=== PATIENT | female | born 1970 | race Hispanic/Latino ===

== ENCOUNTER 2017-11-11 06:49 | Day surgery (SDC) | payer OTHER ==
[2017-11-10 13:28] VITALS: BMI 27.4
--- NOTE | 2017-11-11 07:53 | HP ---
DATE OF ADMISSION: 11/11/2017 SHORT-STAY HISTORY AND PHYSICAL HISTORY OF PRESENT ILLNESS: This is a 47-year-old [place] female referred to me for evaluatio n of chronic acid reflux. The patient has had reflux for several years. Recently, her symptoms wors ened. She complains of persistent heartburn and also regurgitation of certain foods. She also compl ains of burning in the throat area. The patient has really no risk factor except for obesity. The p atient is undergoing EGD, because of the worsening acid reflux. ALLERGIES: None. SOCIAL HISTORY: Patient does not smoke or drink alcohol. MEDICAL ILLNESSES: 1. Obesity. 2. Chronic acid reflux. 3. Rheumatoid arthritis. 4. Hemorrhoids. 5. Cholecystectomy. 6. Ovarian cyst removal. PHYSICAL EXAMINATION: VITAL SIGNS: Her weight is 246 pounds. Pulse is 72, blood pressure 120/78. HEENT: Conjunctivae clear. NECK: Supple. CARDIOVASCULAR SYSTEM: First and second heart sounds normal. LUNGS: Clear to auscultation. ABDOMEN: Soft to palpate. Abdomen is nontender. There is no organomegaly or masses. Bowel sounds normal. ADMITTING DIAGNOSES: Chronic acid reflux, worsening recently. The patient undergoing EGD.
[2017-11-11 08:59] LABS: BHCG - Serum Negative (NEGATIVE); Pregs Control Background? CLEAR/WHITE (CLR/WHITE); Pregs Control Bar Appear? YES (CONTROL BAR)
--- NOTE | 2017-11-11 10:04 | OP ---
DATE OF PROCEDURE: 11/11/2017 SURGEON: Sonia Valentino M.D. OPERATIVE PROCEDURE: Esophagogastroduodenoscopy with biopsy. PREOPERATIVE DIAGNOSES: A 47-year-old female with chronic acid reflux. The patient i s on pantoprazole 40 once a day. The patient has worsening of acid reflux symptoms with regurgitatio n off and on. The patient is undergoing esophagogastroduodenoscopy. POSTOPERATIVE DIAGNOSES: 1. The esophageal mucosa appears normal through the esophagus. There is no esophagitis seen. 2. Antral gastritis. PROCEDURE NOTE: The patient was placed on her left lateral position and was given sedation by Anesth esia Department. A [employer]ax video gastroscope under direct vision was passed down the oropharynx, past the GE junction, into the stomach and subsequently into descending duodenum. Although the patient c omplains of worsening acid reflux, on endoscopy the mucosa appeared normal. No esophagitis seen. Th e GE junction, no pathology seen. Retroflexion failed to show any pathology in the fundus or cardia. The gastric body, no pathology seen. The gastric antrum shows gastritis. Biopsies of the gastric antrum and gastric body. The duodenal bulb, descending duodenum, no pathology. The stomach was deco mpressed and the scope removed. DISCHARGE PLANNING: This is a 47-year-old female with worsening acid reflux over the last several weeks. The patient complains of heartburn ____. The patient has no risk factors for ac id reflux other than obesity. She does not smoke or drink alcohol. Although the patient complained of acid reflux, on endoscopy the mucosa appeared normal. RECOMMENDATIONS: 1. Continue pantoprazole as before. 2. Weight loss stressed to the patient again. 3. Dietary and lifestyle modifications for control of acid reflux.
[2017-11-11] MEDS ORDERED: Lidocaine 1% PF 5 ML VIAL ONE (15:32)
[2017-11-11] MEDS ORDERED: PROPOFOL 200 MG/20 ML VIAL ONE (15:32)
== END 2017-11-11 10:11 | disposition home or self-care (01) ==
LOC: SDC 06:49
PROVIDERS: ATTEND Internal Medicine Gastroenterology
PROC: 0DB68ZX Excision of Stomach, Via Natural or Artificial Opening Endoscopic, Diagnostic (ICD-10-PCS; principal; 2017-11-11)
DX: K31.9 Disease of stomach and duodenum, unspecified (principal); K21.9 Gastro-esophageal reflux disease without esophagitis; Z79.899 Other long term (current) drug therapy
CPT/HCPCS: 36415; 84703; 88305; 88312; J2001; J2704

== ENCOUNTER 2017-11-30 14:33 | Outpatient (CLI) | payer OTHER ==
--- NOTE | 2017-12-03 13:21 | MMO ---
BILATERAL SCREENING MAMMOGRAM: DATE: 11/30/17 HISTORY: 47-year-old female for screening mammography. COMPARISON: 12/08/16, 09/01/14. FINDINGS: Bilateral MLO and CC views of the breasts show scattered fibroglandular breast tissue. There is no ev idence of suspicious mass, suspicious cluster of microcalcifications, or area of architectural distor tion. Interpretation of this mammogram was performed with the assistance of computer-aided detection. IMPRESSION: BIRADS 1: Negative Annual screening mammography is recommended. POS: [facility]
== END 2017-11-30 14:34 | disposition home or self-care (01) ==
LOC: SCSMAMMO 14:33
PROVIDERS: ATTEND Physician Assistant
DX: Z12.31 Encounter for screening mammogram for malignant neoplasm of breast (principal)
CPT/HCPCS: 77067

== ENCOUNTER 2018-07-01 13:17 | Outpatient (CLI) | payer OTHER ==
--- NOTE | 2018-07-01 14:34 | RAD ---
THREE VIEWS RIGHT FOOT: History: M06.4, R53.81, R53.83 FINDINGS: AP, lateral, and oblique views of the right foot obtained and demonstrate no evidence of right foot f ractures, subluxations, or bony lesions. No significant degenerative change. IMPRESSION: Normal three views right foot. POS: [facility]
--- NOTE | 2018-07-01 14:37 | RAD ---
LEFT KNEE THREE VIEWS: History: Inflammatory polyarthropathy. FINDINGS: AP, lateral, and sunrise views of the left knee obtained and demonstrate no evidence of fractures, wilson bluxations or bony lesions. IMPRESSION: Normal three views left knee. POS: [facility]
--- NOTE | 2018-07-01 15:00 | RAD ---
2 VIEWS CHEST: Date: 07/01/18 HISTORY: M06.4, R53.81, and R53.83. FINDINGS: PA and lateral views of chest obtained. The lungs are well aerated. No evidence of acute intrathoracic abnormality seen. No evidence of effus ions, pneumonia, or pneumothorax seen. IMPRESSION: Unremarkable 2 views chest. POS: [facility]
--- NOTE | 2018-07-01 15:03 | RAD ---
LEFT FOOT THREE VIEWS: History: Inflammatory polyarthropathy. FINDINGS: Bone demineralization is normal. There is minimal osteoarthritic type change of the first metatarsal phalangeal joint. Prominent calcaneal spur at the plantar fascia origin is noted. No signs of any ero sive bony change. Joint spaces are all relatively well preserved. IMPRESSION: No plain film evidence for inflammatory polyarthropathy. POS: [facility]
--- NOTE | 2018-07-01 15:07 | RAD ---
RIGHT KNEE THREE VIEWS: History: Inflammatory polyarthropathy. FINDINGS: Some mild osteoarthritic type changes in the knee. Patellofemoral spur formation and medial compartme nt spur formation and mild joint space narrowing. No joint effusion. IMPRESSION: Osteoarthritic arthritic changes of the knee. POS: [facility]
--- NOTE | 2018-07-01 15:10 | RAD ---
THREE VIEWS RIGHT HAND: HISTORY: Inflammatory polyarthropathy. FINDINGS: AP, lateral, and oblique views of right hand are obtained. Three views right hand demonstrate no evidence of fractures, subluxations, or bony acute lesions seen . There does appear to be some joint space narrowing in the DIP joints of the 2nd, 3rd, 4th, and 5th di gits. There is some joint space narrowing at the interphalangeal joints of the 1st digit. IMPRESSION: Joint space narrowing with possible changes of osteoarthritis in the digital interphalangeal joints o f the 2nd through 5th digits and in the interphalangeal joint of the 1st digit. POS: [facility]
--- NOTE | 2018-07-01 15:14 | RAD ---
LEFT HAND THREE VIEWS: History: Inflammatory polyarthropathy. FINDINGS: There is some mild osteoarthritic changes of the hand. Changes are most pronounced at the DIP joint o f the index finger. These changes could possibly be on the basis of an erosive osteoarthritis. Other changes of the distal interphalangeal joints are otherwise more typical of a typical osteoarthritis. Minimal arthritic changes of the first carpal metacarpal joint space is seen. IMPRESSION: Arthritic changes of the hand as discussed above. POS: [facility]
== END 2018-07-01 13:18 | disposition home or self-care (01) ==
LOC: RAD 13:17
PROVIDERS: ATTEND Internal Medicine Rheumatology
DX: M06.4 Inflammatory polyarthropathy (principal); R53.81 Other malaise; R53.83 Other fatigue; M19.042 Primary osteoarthritis, left hand; M18.12 Unilateral primary osteoarthritis of first carpometacarpal joint, left hand; M17.11 Unilateral primary osteoarthritis, right knee; M25.841 Other specified joint disorders, right hand
CPT/HCPCS: 71046

== ENCOUNTER 2018-11-09 14:41 | Outpatient (CLI) | payer OTHER ==
--- NOTE | 2018-11-09 15:24 | RAD ---
3 views right foot. HISTORY: Injury to fifth metatarsal AP, lateral and oblique views right foot obtained. A calcaneal bone spur seen. There is a fracture seen in the distal phalanx fifth right digit. This area of lucency is developed s bijan the previous exam and is compatible with a nonhealed fracture. IMPRESSION: Distal phalangeal fracture fifth digit right foot. Transcribed Date/Time: 11/09/2018 3:27 PM
== END 2018-11-09 14:42 | disposition home or self-care (01) ==
LOC: BICRAD 14:41
PROVIDERS: ATTEND Nurse Practitioner Family
DX: M79.674 Pain in right toe(s) (principal); S92.531D Displaced fracture of distal phalanx of right lesser toe(s), subsequent encounter for fracture with routine healing

== ENCOUNTER 2019-01-06 08:10 | Outpatient (CLI) | payer OTHER ==
--- NOTE | 2019-01-06 09:23 | MMO ---
Bilateral MAMMO Bilat Screen [facility]. CLINICAL HISTORY: Patient is 48 years old and is seen for screening. The patient has no family history of breast cancer. The patient has no personal history of cancer. VIEWS: The views performed were: bilateral craniocaudal and bilateral mediolateral oblique. FILMS COMPARED: The present examination has been compared to prior imaging studies performed at [facility] on 11/30/2017, and at [facility] on 12/08/2016. This study has been interpreted with the assistance of computer-aided detection. MAMMOGRAM FINDINGS: There are scattered fibroglandular densities. There are stable intramammary lymph nodes seen in both breasts. There are no suspicious masses, suspicious calcifications, or new areas of architectural distortion. IMPRESSION: THERE IS NO MAMMOGRAPHIC EVIDENCE OF MALIGNANCY. A ROUTINE FOLLOW-UP MAMMOGRAM IN 1 YEAR IS RECOMMENDED. ACR BI-RADS Category 2 - Benign finding MAMMOGRAPHY NOTE: 1. A negative mammogram report should not delay a biopsy if a dominant of clinically suspicious mass is present. 2. Approximately 10% to 15% of breast cancers are not detected by mammography. 3. Adenosis and dense breasts may obscure an underlying neoplasm. Reported by: AMINATA SEN MD Electonically Signed: [id number]
== END 2019-01-06 08:11 | disposition home or self-care (01) ==
LOC: SCSMAMMO 08:10
PROVIDERS: ATTEND Physician Assistant
DX: Z12.31 Encounter for screening mammogram for malignant neoplasm of breast (principal)
CPT/HCPCS: 77067

== ENCOUNTER 2020-04-17 13:56 | Outpatient (CLI) | payer OTHER ==
--- NOTE | 2020-04-17 16:16 | MMO ---
Bilateral MAMMO Bilat Screen DDI. CLINICAL HISTORY: Patient is 50 years old and is seen for screening. The patient has no family history of breast cancer. The patient has no personal history of cancer. VIEWS: The views performed were: bilateral craniocaudal and bilateral mediolateral oblique. FILMS COMPARED: The present examination has been compared to prior imaging studies performed at on 11/30/2017 and 01/06/2019, and at [facility] on 12/08/2016. This study has been interpreted with the assistance of computer-aided detection. MAMMOGRAM FINDINGS: There are scattered fibroglandular densities. There are stable benign appearing calcifications seen in both breasts. There are no suspicious masses, suspicious calcifications, or new areas of architectural distortion. IMPRESSION: THERE IS NO MAMMOGRAPHIC EVIDENCE OF MALIGNANCY. A ROUTINE FOLLOW-UP MAMMOGRAM IN 1 YEAR IS RECOMMENDED. ACR BI-RADS Category 2 - Benign finding MAMMOGRAPHY NOTE: 1. A negative mammogram report should not delay a biopsy if a dominant of clinically suspicious mass is present. 2. Approximately 10% to 15% of breast cancers are not detected by mammography. 3. Adenosis and dense breasts may obscure an underlying neoplasm. Reported by: JOSÉ LUIS ORNELAS MD Electonically Signed: [id number]
== END 2020-04-17 13:57 | disposition home or self-care (01) ==
LOC: BICMAMMO 13:56
PROVIDERS: ATTEND Physician Assistant
DX: Z12.31 Encounter for screening mammogram for malignant neoplasm of breast (principal)
CPT/HCPCS: 77067

== ENCOUNTER 2020-09-21 07:51 | Outpatient (CLI) | payer OTHER | END 2020-09-21 07:52 | disposition home or self-care (01) | LOC: BICMAMMO 07:51 | PROVIDERS: ATTEND Physician Assistant | DX: N63.20 Unspecified lump in the left breast, unspecified quadrant (principal) | CPT/HCPCS: G0279 ==